=== PATIENT | male | born 1970 | race Caucasian/White ===

== ENCOUNTER 2019-04-04 17:19 | Observation (INO) | payer BC ==
[~2019-04-04 17:19] MED LIST: Iopamidol 370 76% 100 ML VIAL ONE
[2019-04-04] MEDS ORDERED: Ondansetron ODT 4 MG TAB ONE (17:32)
[2019-04-04] MEDS ORDERED: Ondansetron PF 4 MG/2 ML Vial ONE (17:32)
[2019-04-04] MEDS ORDERED: Promethazine HCl 25 MG/ML VIAL ONE (18:00)
[2019-04-04 18:11] LABS: #Basophils 0.1 thou/uL (0.0-0.2); #Eosinphils 0.2 thou/uL (0.0-0.7); #Lymphocytes 3.7 thou/uL (1.20-3.40); #Monocytes 0.8 thou/uL (0.11-0.59); #Neutrophils 7.9 thou/uL (1.40-6.50); %Eosinophils 1.5 % (0.0-10.0); %Lymphocytes 29.1 % (21.0-51.0); %Monocytes 6.6 % (0.0-10.0); %Neutrophils 61.8 % (42.0-75.0); Hemoglobin 15.2 g/dL (14.0-18.0); Mean Corpuscular HGB CONC 34.5 g/dL (32.0-36.0); Mean Corpuscular Hemoglobin 28.9 pg (27.0-31.0); Mean Corpuscular Volume 83.9 fL (78.0-98.0); Mean Platelet Volume 6.5 fL (7.4-10.4); Platelet Count 347 thou/uL (130-400); RBC Distribution Width 12.6 % (11.5-14.5); Red Blood Cell (RBC) Count 5.26 mill/uL (4.70-6.10); White Blood Cell (WBC) Count 12.8 thou/uL (4.8-10.8)
[2019-04-04 18:20] LABS: PTT 28.5 SEC (22.9-36.1); Prothrombin Time 13.6 SEC (12.0-14.7)
[2019-04-04 18:30] LABS: ALT (SGPT) 26 U/L (8-55); AST (SGOT) 23 U/L (5-34); Albumin 4.3 g/dL (3.5-5.0); Alkaline Phosphatase 102 U/L (40-150); Anion Gap 14 mmol/L (10-20); BUN (Urea Nitrogen) 29 mg/dL (8.9-20.6); Bilirubin, Total 0.5 mg/dL (0.2-1.2); CK (CPK) 192 U/L (30-200); Calc. Creatinine Clearance 0 mL/min (70-130); Calcium 9.8 mg/dL (7.8-10.44); Carbon Dioxide 22 mmol/L (22-29); Chloride 106 mmol/L (98-107); Estimated GFR-MDRD 87; Globulin 3.1 g/dL (2.4-3.5); Glucose 109 mg/dL (70-105); Potassium 3.8 mmol/L (3.5-5.1); Protein, Total 7.4 g/dL (6.0-8.3); Sodium 138 mmol/L (136-145)
[2019-04-04] MEDS ORDERED: Meclizine HCl 25 MG TAB ONE (18:32)
[2019-04-04] MEDS ORDERED: diphenhydrAMINE 50 MG/ML VIAL ONE (19:20)
--- NOTE | 2019-04-04 19:22 | CT ---
CT ANGIOGRAM OF BRAIN WITH AND WITHOUT CONTRAST: CT ANGIOGRAM NECK WITH CONTRAST: DATE: 04/04/2019 HISTORY: 48-year-old male with vertigo COMPARISON: None available TECHNIQUE: Noncontrast brain CT performed. Iodinated IV contrast injected. Bolus chasing technique scan performed from upper edi to vertex of the head. Coronal and sagittal 3-D MIP reconstructions. FINDINGS: There is no evidence of acute intra-axial or extra-axial hemorrhage. There is no midline shift or any other mass effect. There is no extra-axial fluid collection. There is no evidence of obstructive hydrocephalus. Calvarium is intact. Because of large body habitus, there is severe streak artifact degrading the images of the aortic arc h and the great vessels arising from it. Additionally, there is severe streak artifact from dense contrast bolus in the right subclavian vein, superior vena cava and right brachiocephalic vein, causi ng additional severe streak artifact. The brachiocephalic artery, right subclavian artery, proximal cervical vertebral arteries, and the origins of the bilateral common carotid arteries, especially the right, are not visible because of this. Left subclavian artery is also severely degraded. The mid and distal cervical vertebral arteries, intracranial vertebral arteries, basilar artery, post erior cerebral arteries, and the most proximal portions of the AICAs, plus PICA's, appear normal in caliber. There is normal caliber without high-grade atheromatous plaque of the distal common carotid arteries, right cervical internal carotid artery, M1 segments of bilateral middle cerebral arteries, A1 and A2 segments of bilateral anterior cerebral arteries, and carotid siphons, demonstrat e no significant stenosis or occlusion. Tortuous distal cervical internal carotids at the skull base. Mild stenosis at origin of left internal carotid by mild plaque. IMPRESSION: 1) great vessels arising from aortic arch cannot be evaluated because of body habitus. 2) otherwise negative CT angiogram of neck and head.
[2019-04-04] MEDS ORDERED: Diazepam 5 MG TAB ONE (20:29)
[2019-04-04] MEDS ORDERED: Aspirin Chewable 81 MG TAB ONE (20:32)
[2019-04-04 22:49] VITALS: BMI 32.6
[2019-04-04] MEDS ORDERED: Acetaminophen 650 MG Suppository PR PRN (23:16)
[2019-04-04] MEDS ORDERED: Ondansetron ODT 4 MG TAB PO PRN (23:16)
[2019-04-04] MEDS ORDERED: Ondansetron PF 4 MG/2 ML Vial IVP PRN (23:16)
[2019-04-04] MEDS ORDERED: Acetaminophen 325 MG TAB PO PRN (23:16)
--- NOTE | 2019-04-05 01:23 | HP ---
CODE STATUS: Full code. TIME OF EVALUATION: 10:40 p.m. PRIMARY CARE DOCTOR: Dr. Stone. CHIEF COMPLAINT: Dizziness. HISTORY OF PRESENT ILLNESS: This is a 48-year-old male patient with past medical history of obesity. The patient has had significant weight loss in the past few months, guided by his doctor, came to the hospital after having an episode of dizziness, associated with sweating and gait instability. The symptoms were severe with no clear triggers. No alleviating factors. The symptoms started a few hours ago. The pain has been slowly getting better. The patient has gotten some medications for dizziness in the ER, but the symptoms have persisted. REVIEW OF SYSTEMS: CONSTITUTIONAL: No fever, chills, or generalized weakness. RESPIRATORY: No cough, sputum production, or shortness of breath. CARDIOVASCULAR: No chest pain or palpitation. GASTROINTESTINAL: No nausea. No vomiting, diarrhea, or abdominal pain. LANGUAGE INTERPRETER: The patient has dizziness, feeling lightheaded, unstable gait. No headache. GENITOURINARY: Burning on urination. EXTREMITIES: No leg swelling. All other systems were reviewed and negative except for the findings mentioned above. PAST MEDICAL HISTORY: Positive for obesity. PAST SURGICAL HISTORY: Orthopedic surgery in the back. PSYCHIATRIC HISTORY: No previous psych history. SOCIAL HISTORY: No alcohol. No drugs. No smoking history. KNOWN ALLERGIES: No known drug allergies. FAMILY HISTORY:Reviewed and no contributory for current presentation. REPORTED MEDICATIONS: None. PHYSICAL EXAMINATION: VITAL SIGNS: On presentation, blood pressure 124/79 with heart rate 68, respiratory rate was 18, temperature 98.8, oxygen saturation 95% on room air. GENERAL APPEARANCE: The patient is alert, oriented, not in acute distress. HEENT: Eyes, normal conjunctivae. Moist oral mucosa. Anicteric. No JVD. RESPIRATORY: Bilateral air entry. No rales. No wheezing. Symmetric expansion. CARDIOVASCULAR: Normal rate and regular rhythm. No murmurs. No gallops. No edema. ABDOMEN: Soft. Normal bowel sounds. MUSCULOSKELETAL: Baseline range of motion and strength. SKIN: Warm, intact. No pallor. No rash. No redness. Capillary refill seems to be intact. NEUROLOGIC: No evidence of any new focal weakness. The patient does have right-sided horizontal nystagmus. No other significant findings on the neuro exam. PSYCH: The patient is in good mood. No anxiety. Optimal judgment. DIAGNOSTIC DATA: EKG was reviewed and showed incomplete RBBB, normal sinus rhythm with a rate of 69. A CT [place] angio with contrast was done. The patient had great vessels arising from aortic arc, could not be evaluated because of body habitus, otherwise negative CT angio of the neck and head. LABORATORY DATA: Labs were reviewed. The patient has white count 12.8, hemoglobin 15.2, MCV 83.9, platelet count 347. Coagulation PT 13.6, INR 1.0, PTT 28.5. Chemistry; sodium 138, potassium 3.8, chloride 106, carbon dioxide 22, anion gap 14, BUN 29, creatinine 0.92, GFR 87, glucose 109, calcium 9.8, total bilirubin 0.5. LFTs were negative. Troponin was negative. ASSESSMENT AND PLAN: The patient will be placed in the hospital with following medical problems: 1. Possible transient ischemic attack versus stroke. The patient has severe vertigo. Still having some horizontal nystagmus pointed to the right side. The symptoms have not subsided. We will do a stroke protocol. We will do MRI in the morning we will call Neurology. 2. Leukocytosis of 12.8. This is not likely significant, most likely due to acute physical distress. We will monitor and treat accordingly. No evidence of sepsis. 3. Hyperglycemia. The patient has no diabetes. This is mild, likely due to acute physical distress or glucose intolerance. 4. Deep venous thrombosis prophylaxis. Job ID: [id number] MTDD
[2019-04-05 05:46] LABS: Anion Gap 12 mmol/L (10-20); BUN (Urea Nitrogen) 19 mg/dL (8.9-20.6); Calc. Creatinine Clearance 188 mL/min (70-130); Carbon Dioxide 26 mmol/L (22-29); Cardiac Risk 4.2 (Less than 4.5); Chloride 107 mmol/L (98-107); Cholesterol 146 mg/dl (< 200 Desired); Estimated GFR-MDRD Greater than 90; Glucose 98 mg/dL (70-105); HDL Cholesterol 35 mg/dL (>60 Neg Risk); LDL Cholesterol, Calculated 90 mg/dL; Potassium 3.8 mmol/L (3.5-5.1); Sodium 141 mmol/L (136-145); Triglycerides 107 mg/dL (Less than 150)
[2019-04-05 06:25] LABS: #Basophils 0.1 thou/uL (0.0-0.2); #Eosinphils 0.1 thou/uL (0.0-0.7); #Lymphocytes 2.7 thou/uL (1.20-3.40); #Monocytes 0.7 thou/uL (0.11-0.59); #Neutrophils 5.7 thou/uL (1.40-6.50); %Basophils 0.6 % (0.0-1.0); %Eosinophils 1.3 % (0.0-10.0); %Lymphocytes 29.2 % (21.0-51.0); %Monocytes 7.5 % (0.0-10.0); %Neutrophils 61.4 % (42.0-75.0); Hemoglobin 13.5 g/dL (14.0-18.0); Mean Corpuscular HGB CONC 33.1 g/dL (32.0-36.0); Mean Corpuscular Hemoglobin 29.4 pg (27.0-31.0); Mean Platelet Volume 7.2 fL (7.4-10.4); Platelet Count 249 thou/uL (130-400); RBC Distribution Width 13.1 % (11.5-14.5); Red Blood Cell (RBC) Count 4.59 mill/uL (4.70-6.10); White Blood Cell (WBC) Count 9.2 thou/uL (4.8-10.8)
[2019-04-05] MEDS: Enoxaparin Sodium 40 MG/0.4 ML SYRINGE SC SCH (08:07)
--- NOTE | 2019-04-05 08:42 | MRI ---
MRI Brain WO Con History: Stroke Comparison: CT brain prior day Findings: On the diffusion weighted imaging sequence there are no abnormal foci of diffusion restrict ion. This is confirmed on the ADC map. On the susceptibility weighted imaging sequence no abnormal areas of hemorrhage. [place] flow voids are maintained. Globes are normal. No midline shift. No mass effect. No significant microangiopathic changes. Marrow signal of the clivus is maintained as well as of the calvarium. Impression: Normal brain MRI.
[2019-04-05] MEDS ORDERED: Enoxaparin Sodium 40 MG/0.4 ML SYRINGE SC SCH (09:00)
--- NOTE | 2019-04-05 09:00 | CT ---
Head CT without contrast 04/05/2019: COMPARISON: 04/04/2019 HISTORY: Clinical concern for acute infarction, vertigo TECHNIQUE: Axial CT imaging at 5 mm intervals from vertex through skull base without contrast FINDINGS: Imaged paranasal sinuses and mastoid air cells well-aerated. No acute osseous abnormality. No intracranial hemorrhage, midline shift, mass effect, or ventricular enlargement. IMPRESSION: No acute findings.
--- NOTE | 2019-04-05 13:54 | PDOC.PN ---
- Subjective Encounter Start Date: 04/05/19 Encounter Start Time: 13:54 Subjective: Patient states he is feeling better. No further vomiting. -: Able to stand and walk without spinning sensation. -: Denies any headache, no sinus congestion or recent head cold. No blurred vision. Overall feels well. Eating/drinking without difficulty. No abdo pain. No bowel changes or urinary symptoms. Denies any chest pain or sob. - Objective Resuscitation Status - Order Detail: 04/04/19 23:16 Resuscitation Status Routine Resuscitation Status: FULL: Full Resuscitation Vital Signs & Weight: Vital Signs (12 hours) Temp Pulse Pulse Pulse Resp BP BP 04/05/19 12:00 97.6 F 65 18 04/05/19 11:13 61 56 L 118/66 130/73 04/05/19 09:25 67 123/58 L 132/64 04/05/19 07:52 97.5 F L 61 18 04/05/19 04:00 97.4 F L 50 L 16 BP Pulse Ox 04/05/19 12:00 130/73 98 04/05/19 11:13 04/05/19 09:25 04/05/19 07:52 115/67 96 04/05/19 04:00 108/56 L 96 Weight Weight 268 lb 6.4 oz I&O: 04/04/19 04/05/19 04/06/19 06:59 06:59 06:59 Intake Total 500 Balance 500 Result Diagrams: 04/05/19 04:24 04/05/19 04:24 Phys Exam - Physical Examination Constitutional: NAD HEENT: PERRLA, moist MMs, sclera anicteric No nystagmus Neck: no nodes, supple, full ROM Respiratory: clear to auscultation bilateral Cardiovascular: RRR Gastrointestinal: soft, non-tender, no distention Musculoskeletal: no edema Neurological: non-focal, normal sensation, moves all 4 limbs Psychiatric: normal affect, A&O x 3 Skin: no rash Dx/Plan (1) Vertigo Code(s): R42 - DIZZINESS AND GIDDINESS Status: Acute (2) Obesity Code(s): E66.9 - OBESITY, UNSPECIFIED Status: Acute - Plan cont current plan of care MRI Brain: no acute changes. CTA: mild stenosis of distal cervical ICA at -: skull base, otherwise unremarkable. -: S/p Echo, awaiting results. -: Awaiting Neuro review. * .
[2019-04-05 23:11] VITALS: TEMP 97.8
[2019-04-06] MEDS: Enoxaparin Sodium 40 MG/0.4 ML SYRINGE SC SCH (07:59)
[2019-04-06 08:01] VITALS: BP 113/52
--- NOTE | 2019-04-07 07:54 | DIS ---
DATE OF ADMISSION: 04/04/2019 DATE OF DISCHARGE: 04/06/2019 CONSULT PHYSICIAN: Dr. Pryor, Neurology. DISCHARGE DIAGNOSES: 1. Vertigo. 2. Leukocytosis, resolved, likely due to acute physical distress. 3. Hyperglycemia, acute, possibly also due to physical distress. 4. Obesity. HOSPITAL COURSE: Mr. Kenyon is a 48-year-old man, who presented after developing acute onset dizziness with nausea and vomiting. The patient denies any headaches, also denied any trauma. He was seen in the emergency department and underwent a CT angiogram of the [place], showing great vessels arising from the aortic arch that could not be evaluated due to body habitus, otherwise the CT angiogram of the head and neck was unremarkable. He was admitted for further workup to rule out a stroke or TIA. The patient proceeded to have an MRI of the brain, which was also unremarkable. A regular CT of the brain was done as well, showing no acute findings. The patient had an echocardiogram done and at time of discharge, the echo report was unavailable. The patient's symptoms were fully resolved the following morning after admission. He has remained symptom-free since then and has been able to mobilize in the hallways without any recurrent nausea, vomiting, or dizziness. The patient feels well in himself and is back at baseline. He was evaluated by Dr. Pryor, who advised no evidence of underlying neurological issue, therefore cleared from his standpoint for discharge with advice to follow up in an ENT clinic or [facility]. REVIEW OF SYSTEMS: The patient has been eating and drinking without difficulty, tolerating regular diet. Denies any nausea or vomiting. No abdominal pain or cramping. No headaches or dizziness. No blurred vision. No speech disturbances. Denies any abdominal pain or cramping. No urinary symptoms. Reports having regular bowel movements. All other review of systems, negative. PHYSICAL EXAMINATION: GENERAL: The patient appears obese, well developed, and in no acute distress. VITAL SIGNS: Temperature 97.8, pulse 63, respirations 14, blood pressure 113/52, and O2 saturations 94% on room air. HEENT: Normocephalic and atraumatic. Pupils are equal, round, and reactive to light. Sclerae without icterus. Oropharynx is clear. NECK: Supple. No lymphadenopathy. LUNGS: Clear to auscultation bilaterally without any wheezes, rales, or rhonchi. CARDIAC: Regular rate and rhythm without audible murmurs, rubs, or gallops. ABDOMEN: Soft, nontender, nondistended. Normoactive bowel sounds present. EXTREMITIES: No lower leg swelling or edema. NEUROLOGIC: Alert and oriented x3. No neuro deficits on exam. SKIN: Without rash or jaundice. LABORATORY DATA: White blood count 9.2, hemoglobin 13.5, hematocrit 40.9. Sodium 141, potassium 3.8, BUN 19, creatinine 0.82, GFR greater than 90, glucose 78, calcium 9.0. LFTs unremarkable. Troponin negative. Albumin 4.3. Triglycerides 107, cholesterol 146, LDL 90, HDL 35. Heart disease risk ratio 4.2. IMAGING DATA: As mentioned above in hospital course. CONDITION: Stable at discharge. ACTIVITY: As tolerated. DIET: Heart healthy. DISCHARGE MEDICATIONS: The patient is given a prescription for Antivert to take three times a day. FOLLOWUP: 1. The patient referred to the [facility]. 2. He will follow up with his primary care physician within 1 week for reassessment and for review of recent echo results. DISPOSITION: The patient is medically cleared for discharge home on 04/06/2019. The patient was discussed with Dr. Yarbrough, who agrees with plan of care as described above. ADDENDUM: Of note, echocardiogram results show normal EF of 55% to 60% with normal sized left atrium and normal left ventricular size. Mild mitral regurgitation present with mild tricuspid regurgitation. No thrombus noted in the cardiac chambers. Above results provided to the patient over the phone. Job ID: [id number]
== END 2019-04-06 10:13 | disposition home or self-care (01) ==
LOC: SCSER 17:19 → 2SE 20:27
PROVIDERS: ADMIT Hospitalist; ATTEND Hospitalist
DX: R42 Dizziness and giddiness (principal); R61 Generalized hyperhidrosis; R26.89 Other abnormalities of gait and mobility; R11.2 Nausea with vomiting, unspecified; R73.9 Hyperglycemia, unspecified; D72.829 Elevated white blood cell count, unspecified; E66.9 Obesity, unspecified; Z68.31 Body mass index [BMI] 31.0-31.9, adult
CPT/HCPCS: 36415; 70450; 70496; 70498; 70551; 80048; 80053; 80061; 82550; 84484; 85025; 85610; 85730; 93005; 93306; 96361; 96372; 96374; 96375; G0378; J1200; J1650; J2405; J2550; J8499; Q0162; Q9967

== ENCOUNTER 2020-04-13 13:09 | Emergency (ER) | payer BC ==
[2020-04-13 13:44] LABS: #Basophils 0.1 thou/uL (0.0-0.2); #Eosinphils 0.1 thou/uL (0.0-0.7); #Lymphocytes 0.9 thou/uL (1.20-3.40); #Monocytes 0.3 thou/uL (0.11-0.59); #Neutrophils 10.4 thou/uL (1.40-6.50); %Basophils 0.5 % (0.0-1.0); %Eosinophils 0.4 % (0.0-10.0); %Lymphocytes 7.7 % (21.0-51.0); %Monocytes 2.6 % (0.0-10.0); %Neutrophils 88.8 % (42.0-75.0); Hemoglobin 14.8 g/dL (14.0-18.0); Mean Corpuscular Hemoglobin 29.6 pg (27.0-31.0); Mean Corpuscular Volume 86.9 fL (78.0-98.0); Mean Platelet Volume 7.1 fL (7.4-10.4); Platelet Count 330 thou/uL (130-400); RBC Distribution Width 12.5 % (11.5-14.5); Red Blood Cell (RBC) Count 5.02 mill/uL (4.70-6.10); White Blood Cell (WBC) Count 11.7 thou/uL (4.8-10.8)
[2020-04-13 14:06] LABS: ALT (SGPT) 21 U/L (8-55); AST (SGOT) 21 U/L (5-34); Albumin 4.3 g/dL (3.5-5.0); Alkaline Phosphatase 113 U/L (40-110); Anion Gap 12 mmol/L (10-20); BUN (Urea Nitrogen) 21 mg/dL (8.9-20.6); Bilirubin, Total 0.4 mg/dL (0.2-1.2); Calc. Creatinine Clearance 0 mL/min (70-130); Calcium 9.6 mg/dL (7.8-10.44); Carbon Dioxide 26 mmol/L (22-29); Chloride 104 mmol/L (98-107); Estimated GFR-MDRD 66; Globulin 3.4 g/dL (2.4-3.5); Glucose 143 mg/dL (70-105); Lipase 82 U/L (8-78); Protein, Total 7.7 g/dL (6.0-8.3); Sodium 138 mmol/L (136-145)
[2020-04-13] MEDS ORDERED: Ondansetron PF 4 MG/2 ML Vial ONE (14:25)
[2020-04-13] MEDS ORDERED: Fentanyl 100 MCG/2 ML VIAL ONE (14:25)
[2020-04-13] MEDS ORDERED: Ketorolac Tromethamine 30 MG/ML VIAL ONE (14:25)
--- NOTE | 2020-04-13 16:16 | CT ---
CT ABDOMEN AND PELVIS WITHOUT CONTRAST STONE PROTOCOL: 04/13/20 HISTORY: Renal stones. COMPARISON: None. Lung bases are clear. No pericardial effusion. There is mild right sided hydroureteronephrosis due to a partially obstructing calculus measuring 4 x 3 x 3 mm. This is distal to the right renal pelvis approximately 3.5 cm. Moderate right sided hydrou reteronephrosis and perinephric stranding. There are multiple punctate 1 to 2 mm calculi throughout the inferior interpolar and superior renal c ollecting system, of at least ten small calculi. No left sided hydroureteronephrosis or nephroureterolithiasis. There is moderate diverticula disease of the sigmoid colon with active current inflammation. No macro perforation. Reactive sigmoid mesenteric lymph nodes. The appendix is visualized and is normal. Aortic contour is nonaneurysmal. Advanced degenerative disc space height loss at L5-S1 with disc osteophyte complex. IMPRESSION: 1. Partially obstructive right proximal ureteral calculus which measures 3 x 4 x 3 cm[address] 3.[address] to the right renal pelvis. There is moderate right sided hydroureteronephrosis and perinephric s tranding. 2. Numerous punctate 1-2 mm calculi of the right renal collecting system as described. 3. Acute uncomplicated sigmoid diverticulitis. Colonoscopic evaluation after treatment recommend ed. 4. No left sided hydroureteronephrosis or nephroureterolithiasis. POS: [facility]
[2020-04-13 16:41] LABS: Bacteria/HPF None Seen HPF (None Seen); Bilirubin Negative (Negative); Blood, Urine 3+ (Negative); Clarity Turbid (Clear); Glucose, Urine (Dipstick) Normal (Negative); Leukocyte Negative Leu/uL (Negative); Nitrite Negative (Negative); Protein, Urine (Dipstick) 20 mg/dL (Neg-Trace); RBC/HPF Greater than 50 HPF (0-3); Squamous Epithelial None Seen HPF (0-3); Urobilinogen Normal mg/dL (Less than 2); WBC/HPF 0-3 HPF (0-3)
== END 2020-04-13 16:32 | disposition home or self-care (01) ==
LOC: ERS 13:09
DX: N13.2 Hydronephrosis with renal and ureteral calculous obstruction (principal); K57.32 Diverticulitis of large intestine without perforation or abscess without bleeding; Z87.442 Personal history of urinary calculi
CPT/HCPCS: 74176; 80053; 81003; 81015; 82550; 83690; 85025; 96361; 96374; 96375; J1885; J2405; J3010

== ENCOUNTER 2020-05-16 06:30 | Outpatient (CLI) | payer BC, OTHER ==
--- NOTE | 2020-05-16 08:55 | RAD ---
XR Chest 1 View HISTORY: Preoperative evaluation COMPARISON: 12/16/2017 FINDINGS: The heart size is normal. The lungs are well expanded without focal areas of consolidation, pneumothorax or pleural effusions. IMPRESSION: No radiographic evidence of acute cardiopulmonary process.
[2020-05-16 11:30] LABS: INR-International Normal Ratio 0.9; Prothrombin Time 12.2 sec (12.0-14.7)
[2020-05-16 11:31] LABS: Hemoglobin 14.6 g/dL (14.0-18.0); Mean Corpuscular HGB CONC 33.7 g/dL (32.0-36.0); Mean Corpuscular Hemoglobin 29.4 pg (27.0-31.0); Mean Corpuscular Volume 87.5 fL (78.0-98.0); Mean Platelet Volume 7.6 fL (7.4-10.4); Platelet Count 244 thou/uL (130-400); RBC Distribution Width 13.4 % (11.5-14.5); Red Blood Cell (RBC) Count 4.95 mill/uL (4.70-6.10); White Blood Cell (WBC) Count 8.2 thou/uL (4.8-10.8)
[2020-05-16 11:31] LABS: PTT 32.9 sec (22.9-36.1)
[2020-05-16 11:47] LABS: Bacteria/HPF None Seen HPF (None Seen); Bilirubin Negative (Negative); Blood, Urine Negative (Negative); Clarity Clear (Clear); Glucose, Urine (Dipstick) Normal (Negative); Ketone, Urine Negative (Negative); Leukocyte Negative Leu/uL (Negative); Nitrite Negative (Negative); Protein, Urine (Dipstick) Negative (Neg-Trace); RBC/HPF 0-3 HPF (0-3); Specific Gravity, Urine 1.018 (1.002-1.036); Squamous Epithelial None Seen HPF (0-3); Urobilinogen Normal mg/dL (Less than 2)
[2020-05-16 12:59] LABS: Anion Gap 9 mmol/L (10-20); BUN (Urea Nitrogen) 17 mg/dL (8.9-20.6); Calc. Creatinine Clearance 0 mL/min (70-130); Carbon Dioxide 30 mmol/L (22-29); Chloride 103 mmol/L (98-107); Estimated GFR-MDRD 72; Potassium 4.3 mmol/L (3.5-5.1); Sodium 138 mmol/L (136-145)
[2020-05-16 13:00] LABS: Calcium 9.4 mg/dL (7.8-10.44); Glucose 104 mg/dL (70-105)
[2020-05-17 14:10] LABS: SARS-CoV-2 MS2 Positive; SARS-CoV-2 N Gene Negative; SARS-CoV-2 S Gene Negative; SARS-CoV-2 orf1ab Negative
== END 2020-05-16 06:31 | disposition home or self-care (01) ==
LOC: LABBT 06:30 → SCSRAD 06:31
PROVIDERS: ATTEND Urology
DX: Z01.818 Encounter for other preprocedural examination (principal); Z11.59 Encounter for screening for other viral diseases; N20.1 Calculus of ureter
CPT/HCPCS: 71045; 80048; 81001; 85027; 85610; 85730; 87086; 87635; 93005; 93010; U0003